=== PATIENT | female | born 1970 | race Native Hawaiian/Other Pacific Islander ===

== ENCOUNTER 2016-10-15 17:37 | Outpatient (CLI) | payer OTHER | END 2016-10-15 17:47 | disposition short-term general hospital (02) | LOC: AMB 17:37 | DX: G40.89 Other seizures (principal); R00.0 Tachycardia, unspecified | CPT/HCPCS: A0425; A0427 ==

== ENCOUNTER 2016-12-12 15:27 | Outpatient (CLI) | payer OTHER | END 2016-12-12 19:17 | disposition home or self-care (01) | LOC: MAMMO 15:27 | DX: Z12.31 Encounter for screening mammogram for malignant neoplasm of breast (principal) | CPT/HCPCS: G0202-TC ==

== ENCOUNTER 2016-12-26 13:32 | Outpatient (CLI) | payer OTHER | END 2016-12-26 19:18 | disposition home or self-care (01) | LOC: US 13:32 | DX: R92.8 Other abnormal and inconclusive findings on diagnostic imaging of breast (principal) ==

== ENCOUNTER 2017-12-02 14:58 | Emergency (ER) | payer OTHER ==
[~2017-12-02] VITALS: Ht 167.6 cm; Wt 66.2 kg
[2017-12-02 15:11] VITALS: BP 111/58; TEMP 97.2
== END 2017-12-02 16:10 | disposition home or self-care (01) ==
LOC: ED 14:58
DX: M79.601 Pain in right arm (principal)
CPT/HCPCS: 99281

== ENCOUNTER 2018-08-28 16:57 | Outpatient (CLI) | payer OTHER | END 2018-08-28 17:08 | disposition short-term general hospital (02) | LOC: AMB 16:57 | DX: F23 Brief psychotic disorder (principal) | CPT/HCPCS: A0425; A0427 ==

== ENCOUNTER 2018-08-28 17:10 | Emergency (ER) | payer OTHER ==
[~2018-08-28] VITALS: Ht 162.6 cm; Wt 59.0 kg
[2018-08-28 17:16] VITALS: BP 146/78; TEMP 99.5
== END 2018-08-28 17:42 | disposition home or self-care (01) ==
LOC: ED 17:10
DX: Z00.8 Encounter for other general examination (principal)
CPT/HCPCS: 99281